=== PATIENT | female | born 2000 | race Caucasian/White ===

== ENCOUNTER → 2022-05-02 | Outpatient (REF) | payer BC ==
[2022-05-02 18:52] LABS: GC DNA AMPLIFICATION NEGATIVE (NEGATIVE)
== END ==
LOC: M LAB REF 16:47
PROVIDERS: ATTEND Nurse Practitioner Family
DX: A74.9 Chlamydial infection, unspecified (principal)

== ENCOUNTER → 2022-07-12 | Outpatient (REF) | LOC: M EMP 09:55 | PROVIDERS: ATTEND Family Medicine | DX: Z11.52 Encounter for screening for COVID-19 (principal) ==

== ENCOUNTER 2022-10-18 00:27 | Emergency (ER) | payer BC ==
[~2022-10-18] VITALS: Ht 160 cm; Wt 58.1 kg
[2022-10-18] MEDS ORDERED: NITR100C2 PO (00:47)
[2022-10-18 01:14] LABS: APPEARANCE, URINE MANUAL HAZY (CLEAR); COLOR, URINE MANUAL YELLOW (YELLOW); PH,URINE MAN 5.5 UNITS (5.0 - 7.0)
[2022-10-18 01:15] LABS: BILIRUBIN, URINE MANUAL NEGATIVE (NEGATIVE); GLUCOSE, URINE (UA) MANUAL NEGATIVE (NEGATIVE); KETONE, URINE MANUAL 1+ mg/dL (NEGATIVE); NITRITE, URINE MANUAL NEGATIVE (NEGATIVE); PROTEIN, URINE MANUAL 1+ mg/dL (NEGATIVE); UROBILINOGEN, URINE MANUAL NORMAL (NORMAL)
[2022-10-18 01:16] LABS: BLOOD URINE MANUAL NEGATIVE (NEGATIVE); LEUKOCYTE ESTERASE, URINE MAN TRACE (NEGATIVE)
[2022-10-18 01:46] LABS: BACTERIA, URINE MOD AMOUNT; SQUAMOUS EPITHELIAL CELL URINE MOD AMOUNT /hpf (SMALL AMT); TRANSITIONAL EPI CELLS, URINE SMALL AMOUNT /hpf
[2022-10-18 01:47] LABS: HYALINE CAST, URINE NONE SEEN /lpf (0-1); RBC, URINE NONE SEEN /hpf (0-3)
[2022-10-18 03:52] LABS: BASO % 0.6 % (0.0-1.0); EOS # 0.1 10^3/uL (0.0-0.5); EOS % 0.8 % (0.0-3.0); HEMATOCRIT 38.9 % (36.0-47.0); LYMPH # 2.6 10^3/uL (1.5-5.0); MEAN CORPUSCULAR HEMOGLOBIN 29.8 pg (27.0-33.0); MEAN CORPUSCULAR HGB CONC 33.4 g/dl (32.0-36.5); MEAN CORPUSCULAR VOLUME 89.2 fl (80.0-96.0); MONO # 0.4 10^3/uL (0.0-0.8); MONO % 5.8 % (2.0-8.0); NEUTROPHILS # 3.9 10^3/uL (1.5-8.5); NEUTROPHILS % 55.5 % (36.0-66.0); PLATELET COUNT, AUTOMATED 249 10^3/uL (150-450); RED BLOOD COUNT 4.36 10^6/uL (4.00-5.40); WHITE BLOOD COUNT 7.1 10^3/uL (4.0-10.0)
[2022-10-18 04:42] LABS: BLOOD UREA NITROGEN 10 MG/DL (9-23); CALCIUM LEVEL 9.2 MG/DL (8.5-10.1); CARBON DIOXIDE LEVEL 27 MMOL/L (20-31); CHLORIDE LEVEL 104 MMOL/L (98-107); CREATININE FOR GFR 0.67 MG/DL (0.55-1.30); GLUCOSE, FASTING 83 MG/DL (60-100); HCG, SERUM QUALITATIVE NEGATIVE (NEGATIVE); POTASSIUM SERUM 3.7 MMOL/L (3.5-5.1); SODIUM LEVEL 138 MMOL/L (136-145)
[2022-10-18] MEDS ORDERED: PHENAZOPYRIDINE 100 MG TAB PO ONE (05:45)
[2022-10-18] MEDS ORDERED: PYRI1TAB5 PO (05:47)
[2022-10-18 06:19] VITALS: BP 117/66
== END 2022-10-18 06:22 | disposition home or self-care (01) ==
LOC: M ED 00:27
DX: R10.9 Unspecified abdominal pain (principal); Z87.448 Personal history of other diseases of urinary system

== ENCOUNTER 2022-10-27 18:46 | Emergency (ER) | payer BC, OTHER ==
[~2022-10-27] VITALS: Ht 160 cm; Wt 56.7 kg
[~2022-10-27 18:46] MED LIST: NITR100C2 PO; PYRI1TAB5 PO
[2022-10-27 18:48] VITALS: BP 135/88
[2022-10-27] MEDS ORDERED: IBUPROFEN 600MG TAB PO ONE (20:45)
[2022-10-27] MEDS ORDERED: NEOSPORIN OINT 0.9 GM PKT TOP ONE (20:45)
== END 2022-10-27 21:30 | disposition home or self-care (01) ==
LOC: M ED 18:46
DX: S60.212A Contusion of left wrist, initial encounter (principal); S60.812A Abrasion of left wrist, initial encounter; W23.0XXA Caught, crushed, jammed, or pinched between moving objects, initial encounter; Y92.129 Unspecified place in nursing home as the place of occurrence of the external cause; Y99.0 Civilian activity done for income or pay; F17.290 Nicotine dependence, other tobacco product, uncomplicated

== ENCOUNTER → 2022-10-31 | Outpatient (REF) | LOC: M LABSMTC 11:14 | PROVIDERS: ATTEND Family Medicine | DX: Z11.52 Encounter for screening for COVID-19 (principal) ==

== ENCOUNTER → 2022-11-05 | Outpatient (REF) | LOC: M EMP 13:47 | PROVIDERS: ATTEND Family Medicine | DX: Z20.822 Contact with and (suspected) exposure to COVID-19 (principal) ==

== ENCOUNTER 2022-11-11 15:09 | Inpatient (IN) | payer BC, OTHER ==
[~2022-11-11] VITALS: Ht 160 cm; Wt 57.0 kg
[2022-11-11 15:52] LABS: HEMATOCRIT 38.7 % (36.0-47.0); HEMOGLOBIN 12.8 g/dl (12.0-15.5); MEAN CORPUSCULAR HEMOGLOBIN 29.8 pg (27.0-33.0); MEAN CORPUSCULAR HGB CONC 33.1 g/dl (32.0-36.5); PLATELET COUNT, AUTOMATED 273 10^3/uL (150-450); WHITE BLOOD COUNT 5.4 10^3/uL (4.0-10.0)
[2022-11-11 16:18] LABS: ETHYL ALCOHOL (ETHANOL) < 0.003 % (0.000-0.010)
[2022-11-11 16:19] LABS: ACETAMINOPHEN LEVEL < 2.0 UG/ML (10.0-20.0); SALICYLATE LEVEL < 3.0 MG/DL (<30)
[2022-11-11 16:23] LABS: ALKALINE PHOSPHATASE 50 U/L (46-116); ALT/SGPT 17 U/L (7.0-40); AST/SGOT 20 U/L (<34); BILIRUBIN,DIRECT 0.3 MG/DL (<0.4); BILIRUBIN,TOTAL 1.1 MG/DL (0.3-1.2); BLOOD UREA NITROGEN 7 MG/DL (9-23); CALCIUM LEVEL 8.7 MG/DL (8.5-10.1); CARBON DIOXIDE LEVEL 25 MMOL/L (20-31); CHLORIDE LEVEL 108 MMOL/L (98-107); GLUCOSE, FASTING 88 MG/DL (60-100); POTASSIUM SERUM 4.2 MMOL/L (3.5-5.1); SODIUM LEVEL 139 MMOL/L (136-145); THYROID STIMULATING HORMONE 1.004 uIU/ML (0.48-4.17); TOTAL PROTEIN 6.9 G/DL (5.7-8.2)
[2022-11-11 16:28] LABS: HCG, SERUM QUALITATIVE NEGATIVE (NEGATIVE)
[2022-11-11 18:35] LABS: AMPHETAMINES LEVEL URINE NEGATIVE (NEGATIVE); BENZODIAZEPINES URINE NEGATIVE (NEGATIVE)
[2022-11-11 18:36] LABS: BARBITURATES URINE NEGATIVE (NEGATIVE); CANNABINOIDS URINE NEGATIVE (NEGATIVE); COCAINE METABOLITE URINE NEGATIVE (NEGATIVE); METHADONE URINE NEGATIVE (NEGATIVE); OPIATES URINE NEGATIVE (NEGATIVE); PHENCYCLIDINE URINE NEGATIVE (NEGATIVE)
[2022-11-11] MEDS ORDERED: ACETAMINOPHEN TAB 650MG DOSE (2X325MG) PO ONE (20:10)
[2022-11-11] MEDS: BACTRIM 160MG/800MG DS TAB PO SCH (20:11)
[2022-11-12] MEDS: BACTRIM 160MG/800MG DS TAB PO SCH ×2 (08:58→20:36)
[2022-11-12] MEDS: NICOTINE 21MG/24HR 1 EA TRANSDERMAL TD SCH (09:00)
[2022-11-12] MEDS ORDERED: ETON68IM SC (10:07)
[2022-11-12] MEDS ORDERED: HOME MED LIST COMPLETE! XX SCH (10:10)
[2022-11-12] MEDS ORDERED: IBUPROFEN 400MG TAB PO PRN (12:10)
[2022-11-12] MEDS ORDERED: MOM 30ML SUSPENSION UDC PO PRN (12:10)
[2022-11-12] MEDS ORDERED: MAALOX 30 ML SUSP *UDC PO PRN (12:10)
[2022-11-12] MEDS ORDERED: traZODone 50 MG TAB PO PRN (12:10)
[2022-11-12 16:38] VITALS: BP 110/70
[2022-11-13 06:50] VITALS: BP 135/77
[2022-11-13] MEDS: ESCITALOPRAM OXALATE 5MG TABLET (LEXAPRO) PO SCH (10:00)
[2022-11-13] MEDS: BACTRIM 160MG/800MG DS TAB PO SCH ×2 (10:00→21:59)
[2022-11-13] MEDS: NICOTINE 21MG/24HR 1 EA TRANSDERMAL TD SCH (10:06)
[2022-11-13 16:08] VITALS: BP 129/79
[2022-11-13] MEDS ORDERED: ACETAMINOPHEN 500 MG TAB PO ONE (18:15)
[2022-11-14 07:08] VITALS: BP 134/74
[2022-11-14] MEDS: NICOTINE 21MG/24HR 1 EA TRANSDERMAL TD SCH ×2 (09:00→10:51)
[2022-11-14] MEDS: ESCITALOPRAM OXALATE 5MG TABLET (LEXAPRO) PO SCH (10:49)
[2022-11-14] MEDS: BACTRIM 160MG/800MG DS TAB PO SCH ×2 (10:50→20:25)
[2022-11-14] MEDS ORDERED: ESCITALOPRAM OXALATE 5MG TABLET (LEXAPRO) PO ONE (11:00)
[2022-11-14 19:00] VITALS: BP 134/69
[2022-11-15 06:14] VITALS: BP 136/73
[2022-11-15] MEDS ORDERED: ESCITALOPRAM OXALATE 10 MG TAB (LEXAPRO) PO SCH (09:00)
[2022-11-15] MEDS ORDERED: NICOTINE 21MG/24HR 1 EA TRANSDERMAL TD PRN (09:00)
[2022-11-15] MEDS: BACTRIM 160MG/800MG DS TAB PO SCH (09:34)
[2022-11-15] MEDS ORDERED: LEXA1TAB PO (11:20)
== END 2022-11-15 11:34 | disposition home or self-care (01) | DRG 754 ==
LOC: M ED 15:09 → M ED INP 11-12 12:08 → M PSY 11-12 15:44
PROVIDERS: ADMIT Student in an Organized Health Care Education/Training Program; ATTEND Student in an Organized Health Care Education/Training Program
DX: F32.A Depression, unspecified (principal); U07.1 COVID-19; R45.851 Suicidal ideations; Z91.51 Personal history of suicidal behavior; F17.290 Nicotine dependence, other tobacco product, uncomplicated; F41.9 Anxiety disorder, unspecified; F90.9 Attention-deficit hyperactivity disorder, unspecified type; Z79.899 Other long term (current) drug therapy; Z63.8 Other specified problems related to primary support group

== ENCOUNTER 2022-12-25 23:29 | Inpatient (IN) | payer BC ==
[~2022-12-25] VITALS: Ht 160 cm; Wt 57.2 kg
[~2022-12-25 23:29] MED LIST changes: +ETON68IM SC; +LEXA1TAB PO
[2022-12-26] MEDS ORDERED: ONDANSETRON 4MG 2ML VIAL IV ONE ×2 (00:40→03:40)
[2022-12-26 01:51] LABS: BASO % 0.3 % (0.0-1.0); HEMATOCRIT 44.1 % (36.0-47.0); HEMOGLOBIN 14.8 g/dl (12.0-15.5); LYMPH # 2.2 10^3/uL (1.5-5.0); MEAN CORPUSCULAR HEMOGLOBIN 30.2 pg (27.0-33.0); MEAN CORPUSCULAR HGB CONC 33.6 g/dl (32.0-36.5); MONO # 0.7 10^3/uL (0.0-0.8); MONO % 4.4 % (2.0-8.0); NEUTROPHILS # 12.8 10^3/uL (1.5-8.5); NEUTROPHILS % 80.9 % (36.0-66.0); PLATELET COUNT, AUTOMATED 395 10^3/uL (150-450); WHITE BLOOD COUNT 15.8 10^3/uL (4.0-10.0)
[2022-12-26 02:00] LABS: AMPHETAMINES LEVEL URINE NEGATIVE (NEGATIVE)
[2022-12-26 02:01] LABS: BARBITURATES URINE NEGATIVE (NEGATIVE); BENZODIAZEPINES URINE NEGATIVE (NEGATIVE); CANNABINOIDS URINE NEGATIVE (NEGATIVE); COCAINE METABOLITE URINE NEGATIVE (NEGATIVE); METHADONE URINE NEGATIVE (NEGATIVE); OPIATES URINE NEGATIVE (NEGATIVE); PHENCYCLIDINE URINE NEGATIVE (NEGATIVE)
[2022-12-26 02:03] LABS: ETHYL ALCOHOL (ETHANOL) < 0.003 % (0.000-0.010)
[2022-12-26 02:04] LABS: ACETAMINOPHEN LEVEL < 2.0 UG/ML (10.0-20.0); CPK CREATINE PHOSPHOKINASE 81 U/L (34-145); SALICYLATE LEVEL < 3.0 MG/DL (<30)
[2022-12-26 02:13] LABS: HCG, SERUM QUALITATIVE NEGATIVE (NEGATIVE)
[2022-12-26 02:14] LABS: ALBUMIN 5.2 G/DL (3.2-5.2); ALKALINE PHOSPHATASE 61 U/L (46-116); ALT/SGPT 30 U/L (7.0-40); AST/SGOT 26 U/L (<34); BILIRUBIN,DIRECT 0.2 MG/DL (<0.4); BILIRUBIN,TOTAL 0.8 MG/DL (0.3-1.2); BLOOD UREA NITROGEN 9 MG/DL (9-23); CALCIUM LEVEL 9.6 MG/DL (8.5-10.1); CARBON DIOXIDE LEVEL 23 MMOL/L (20-31); CHLORIDE LEVEL 104 MMOL/L (98-107); CREATININE FOR GFR 0.59 MG/DL (0.55-1.30); GLUCOSE, FASTING 115 MG/DL (60-100); POTASSIUM SERUM 3.7 MMOL/L (3.5-5.1); SODIUM LEVEL 140 MMOL/L (136-145); THYROID STIMULATING HORMONE 1.799 uIU/ML (0.48-4.17)
[2022-12-26 03:14] LABS: TOTAL PROTEIN 8.3 G/DL (5.7-8.2)
[2022-12-26] MEDS ORDERED: LEXA1TAB PO (06:20)
[2022-12-26] MEDS ORDERED: HOME MED LIST COMPLETE! XX SCH (06:20)
[2022-12-26] MEDS ORDERED: MOM 30ML SUSPENSION UDC PO PRN (12:35)
[2022-12-26] MEDS ORDERED: MAALOX 30 ML SUSP *UDC PO PRN (12:35)
[2022-12-26] MEDS: NICOTINE 21MG/24HR 1 EA TRANSDERMAL TD SCH (14:06)
[2022-12-26 16:21] LABS: RSV AMPLIFICATION NEGATIVE (NEGATIVE)
[2022-12-26 18:18] VITALS: BP 126/78
[2022-12-26] MEDS ORDERED: ESCITALOPRAM OXALATE 10 MG TAB (LEXAPRO) PO SCH ×2 (21:00)
[2022-12-26] MEDS: traZODone 50 MG TAB PO PRN (22:50)
[2022-12-26] MEDS: diphenhydrAMINE 25MG CAP PO PRN (22:50)
[2022-12-27 06:11] VITALS: BP 116/83
[2022-12-27] MEDS: NICOTINE 21MG/24HR 1 EA TRANSDERMAL TD SCH (09:00)
[2022-12-27 16:42] VITALS: BP 123/66
[2022-12-27] MEDS ORDERED: IBUPROFEN 400MG TAB PO PRN (18:20)
[2022-12-27] MEDS ORDERED: ACETAMINOPHEN TAB 650MG DOSE (2X325MG) PO PRN (18:20)
[2022-12-27] MEDS: ESCITALOPRAM OXALATE 5MG TABLET (LEXAPRO) PO SCH (21:37)
[2022-12-28] MEDS: ONDANSETRON 4MG ORAL DISINTEGRATING TAB PO PRN ×2 (00:56→11:59)
[2022-12-28] MEDS: traZODone 50 MG TAB PO PRN (01:13)
[2022-12-28 06:31] VITALS: BP 119/55
[2022-12-28] MEDS: NICOTINE 21MG/24HR 1 EA TRANSDERMAL TD SCH ×2 (08:25→09:28)
[2022-12-28] MEDS: diphenhydrAMINE 25MG CAP PO PRN ×2 (10:28→18:51)
[2022-12-28 16:35] VITALS: BP 111/60
[2022-12-28] MEDS ORDERED: LORazepam 0.5 MG TAB PO PRN (17:40)
[2022-12-28] MEDS: ESCITALOPRAM OXALATE 5MG TABLET (LEXAPRO) PO SCH (21:18)
[2022-12-29 06:42] VITALS: BP 146/59
[2022-12-29] MEDS: ONDANSETRON 4MG ORAL DISINTEGRATING TAB PO PRN ×2 (08:00→21:37)
[2022-12-29] MEDS: NICOTINE 21MG/24HR 1 EA TRANSDERMAL TD SCH (08:00)
[2022-12-29] MEDS: diphenhydrAMINE 25MG CAP PO PRN (10:59)
[2022-12-29 16:51] VITALS: BP 136/83
[2022-12-29] MEDS: traZODone 50 MG TAB PO PRN (21:36)
[2022-12-29] MEDS: ESCITALOPRAM OXALATE 5MG TABLET (LEXAPRO) PO SCH (21:36)
[2022-12-30 06:35] VITALS: BP 107/62
[2022-12-30] MEDS: NICOTINE 21MG/24HR 1 EA TRANSDERMAL TD SCH (10:09)
[2022-12-30] MEDS ORDERED: traZODone 50 MG TAB PO PRN (10:35)
[2022-12-30 18:22] VITALS: BP 124/75
[2022-12-30] MEDS: ESCITALOPRAM OXALATE 5MG TABLET (LEXAPRO) PO SCH (20:45)
[2022-12-31 05:45] VITALS: BP 105/54
[2022-12-31] MEDS: NICOTINE 21MG/24HR 1 EA TRANSDERMAL TD SCH (10:16)
[2022-12-31 17:48] VITALS: BP 140/68
[2022-12-31] MEDS: ESCITALOPRAM OXALATE 5MG TABLET (LEXAPRO) PO SCH (20:54)
[2023-01-01 06:07] VITALS: BP 116/69
[2023-01-01] MEDS ORDERED: LEXA1TAB2 PO (08:52)
[2023-01-01] MEDS ORDERED: TRAZ-252 PO (08:53)
[2023-01-01] MEDS: NICOTINE 21MG/24HR 1 EA TRANSDERMAL TD SCH (10:52)
== END 2023-01-01 11:05 | disposition home or self-care (01) | DRG 755 ==
LOC: M ED 23:29 → M ED INP 12-26 12:34 → M PSY 12-26 17:26
PROVIDERS: ADMIT Student in an Organized Health Care Education/Training Program; ATTEND Psychiatry & Neurology Psychiatry
DX: F43.25 Adjustment disorder with mixed disturbance of emotions and conduct (principal); F17.290 Nicotine dependence, other tobacco product, uncomplicated; Z79.899 Other long term (current) drug therapy; T14.91XA Suicide attempt, initial encounter; T39.312A Poisoning by propionic acid derivatives, intentional self-harm, initial encounter; Z63.0 Problems in relationship with spouse or partner; Z20.822 Contact with and (suspected) exposure to COVID-19; Z91.51 Personal history of suicidal behavior; Z91.52 Personal history of nonsuicidal self-harm

== ENCOUNTER → 2023-01-31 | Outpatient (CLI) | payer BC ==
[~2023-01-31] MED LIST changes: +LEXA1TAB2 PO; +TRAZ-252 PO
[2023-01-31 15:17] LABS: CHOLESTEROL RISK RATIO 2.55 (<5); LDL CHOLESTEROL 79.6 MG/DL (<100)
== END ==
LOC: M LAB 13:55
PROVIDERS: ATTEND Psychiatry & Neurology Psychiatry
DX: F32.9 Major depressive disorder, single episode, unspecified (principal); Z65.9 Problem related to unspecified psychosocial circumstances

== ENCOUNTER → 2023-07-04 | Outpatient (REF) | LOC: M EMP 14:52 | PROVIDERS: ATTEND Family Medicine | DX: Z11.52 Encounter for screening for COVID-19 (principal) ==

== ENCOUNTER → 2023-08-22 | Outpatient (REF) ==
[2023-08-22 15:34] LABS: RSV AMPLIFICATION NEGATIVE (NEGATIVE)
== END ==
LOC: M EMP 12:05
PROVIDERS: ATTEND Family Medicine
DX: Z20.828 Contact with and (suspected) exposure to other viral communicable diseases (principal)